=== PATIENT | male | born 1955 | race African-American/Black ===

== ENCOUNTER 2020-03-04 05:20 | Emergency (ER) | payer OTHER | END 2020-03-04 09:16 | disposition E | LOC: NAV ERS 05:20 | DX: I46.9 Cardiac arrest, cause unspecified (principal); I11.0 Hypertensive heart disease with heart failure; I50.9 Heart failure, unspecified; J44.9 Chronic obstructive pulmonary disease, unspecified; E11.9 Type 2 diabetes mellitus without complications; I48.91 Unspecified atrial fibrillation; Z79.899 Other long term (current) drug therapy | CPT/HCPCS: 92950 ==